=== PATIENT | female | born 1970 | race Caucasian/White ===

== ENCOUNTER → 2023-12-15 10:51 | Outpatient (BNVA) | payer SELFPAY | PROVIDERS: Family Provider Family Medicine; PCP Family Medicine; Visit Provider Family Medicine | DX: M19.90 Unspecified osteoarthritis, unspecified site (principal) | CPT/HCPCS: 80053; 85025; 85651 ==

== ENCOUNTER 2024-01-26 13:12 | Outpatient (CLI) | payer MEDICAID, SELFPAY ==
--- NOTE | 2024-01-26 13:29 | XRR_ITS ---
PROCEDURE INFORMATION: Exam: XR Bilateral Knees, Standing, Anteroposterior Exam date and time: 01/26/2024 1:32 PM Age: 53 years old Clinical indication: Bilateral; Patient HX: Months pain and swelling in right hip, pain and swelling in both knees, right knee pain all over knee, left mostly on lateral side of knee; Additional info: M19.90 - unspecified osteoarthritis, unspecified site TECHNIQUE: Imaging protocol: Radiologic exam of the bilateral knees. Views: Standing frontal. COMPARISON: No relevant prior studies available. FINDINGS: Bones/joints: Osseous anatomic alignment is well preserved. No acutely displaced fracture or dislocation. Joint spaces are well preserved. Soft tissues: No significant soft tissue swelling. XR/[place] [id number] IMPRESSION: No acute findings.
--- NOTE | 2024-01-26 13:29 | XRR_ITS ---
PROCEDURE INFORMATION: Exam: XR Right Hip Exam date and time: 01/26/2024 1:32 PM Age: 53 years old Clinical indication: Hip pain; Patient HX: Months pain and swelling in right hip, pain and swelling in both knees, right knee pain all over knee, left mostly on lateral side of knee; Additional info: M19.90 - unspecified osteoarthritis, unspecified site TECHNIQUE: Imaging protocol: Radiologic exam of the right hip. Views: 1 view hip with pelvis when performed. COMPARISON: No relevant prior studies available. FINDINGS: Bones/joints: Severe osteoarthritis of the right hip joint with tkaw-yo-jkdl articulation, flattening of the femoral head, and superior displacement of the femoral head in relation to the acetabulum, as well as subchondral sclerosis and extensive subchondral cyst formation in both the femoral head and acetabulum. No acutely displaced fractures. No joint dislocation. Soft tissues: Unremarkable. Vasculature: There are numerous benign phleboliths in the pelvis. XR/XR hip RT 2-3V wo/w pel* [id number] IMPRESSION: Severe osteoarthritis of the right hip joint with khwh-wu-hvwx articulation, flattening of the femoral head, and superior displacement of the femoral head in relation to the acetabulum, as well as subchondral sclerosis and extensive subchondral cyst formation in both the femoral head and acetabulum.
== END 2024-01-26 13:13 | disposition home or self-care (01) ==
LOC: RAD 13:16
PROVIDERS: PCP Family Medicine; Visit Provider Family Medicine
DX: M17.0 Bilateral primary osteoarthritis of knee (principal)
CPT/HCPCS: 73502; 73565

== ENCOUNTER → 2024-03-13 13:02 | Outpatient (BNVA) | payer MEDICAID, SELFPAY | PROVIDERS: PCP Family Medicine; Visit Provider Nurse Practitioner | DX: M16.11 Unilateral primary osteoarthritis, right hip (principal); M85.451 Solitary bone cyst, right pelvis | CPT/HCPCS: 73502 ==

== ENCOUNTER 2024-03-22 14:55 | Outpatient (CLI) | payer MEDICAID, SELFPAY ==
--- NOTE | 2024-03-22 15:15 | MRR_ITS ---
PROCEDURE INFORMATION: Exam: MR Right Lower Extremity Joint Without Contrast; Hip Exam date and time: 03/22/2024 3:25 PM Age: 53 years old Clinical indication: Right; Patient HX: RT hip pain, anv 1 year. Fell 1 year ago; Additional info: Right hip pain, not for jose armando protocol. TECHNIQUE: Imaging protocol: Magnetic resonance imaging of the right lower extremity joint without contrast. Exam focused on the hip. COMPARISON: CR XR hip RT 2-3V wo/w pel* [id number] 03/13/2024 1:04 PM, x-ray pelvis and right hip 01/26/2024 FINDINGS: Limitations: Motion artifact. Bones/joints: Severe right hip joint space narrowing is noted, with full-thickness cartilage loss of the femoral head and acetabulum. Moderate to large subcortical cystic changes in the right acetabulum, inferior iliac bone and right femoral head are present. The cystic changes in the femoral head and acetabulum notable for surrounding peripheral linear hypointensity on all imaging sequences. Moderate acetabular and severe right femoral head osteophyte formation is identified a large right hip joint effusion is noted, containing areas of T2 intermediate signal intensity, for example on series 7, image 16. No acute fracture. Images include the left hip demonstrates severe joint space narrowing and cartilage loss, mild subcortical cystic changes in the femoral head and acetabulum, and mild patchy bone marrow edema in the femoral head. A moderate region of serpiginous T1 hypointensity involving the superior left femoral head is best demonstrated on series 4 between images 11 in 16. There is corresponding hypointensity on the fluid sensitive sequences within this region peripherally with mild central hyperintensity. Moderate left acetabular and femoral head osteophyte formation. Labrum: Assessment of the labrum is limited by joint space narrowing and artifact. Diffuse tearing of the right acetabular labrum appears to be present. TENDONS: Tendons of iliopsoas group: Unremarkable. No evidence of tear. Tendons of medial compartment of thigh: Unremarkable. No evidence of tear. Tendons of lateral rotators of hip: Unremarkable. No evidence of tear. Tendons of gluteal group: Unremarkable. No evidence of tear. Tendons of posterior compartment of thigh: There is evidence of moderate partial tearing of the proximal left hamstring tendons. Unremarkable right hamstring tendons. Soft tissues: Unremarkable. Reproductive: An ovoid thin-walled fluid signal intensity structure in the right ovary measures 2.0 x 1.7 x 2.4 cm on series 5, image 9. Unremarkable left ovary. The uterus is anteverted. Small posterior fluid signal intensity structures in the cervix compatible with nabothian cysts. MR/MR hip RT wo con* [id number] IMPRESSION: 1. Advanced, right greater than left hip joint osteoarthritic changes are present. 2. Large right hip joint effusion with evidence of synovitis, for which superimposed inflammatory arthropathy cannot be excluded. 3. Cystic changes in the inferior right iliac bone, right acetabulum and femoral head are likely related to underlying primary osteoarthritis. No definitive evidence of erosive changes or osteomyelitis. 4. Extensive tearing of the right acetabular labrum. 5. Regions of curvilinear hypointensity in the superior left femoral head are noted, compatible with avascular necrosis. Consider dedicated left hip MRI for further assessment as clinically indicated. 6. Moderate partial tearing of the proximal left hamstring tendons. 7. Simple appearing probable benign right ovarian cyst, incompletely characterized without intravenous contrast. Consider dedicated pelvic ultrasound for further assessment.
== END 2024-03-22 14:56 | disposition home or self-care (01) ==
PROVIDERS: PCP Family Medicine; Visit Provider Nurse Practitioner
DX: M16.0 Bilateral primary osteoarthritis of hip (principal); M65.88 Other synovitis and tenosynovitis, other site; S73.191A Other sprain of right hip, initial encounter; S76.812A Strain of other specified muscles, fascia and tendons at thigh level, left thigh, initial encounter; N83.201 Unspecified ovarian cyst, right side; R93.7 Abnormal findings on diagnostic imaging of other parts of musculoskeletal system; M25.751 Osteophyte, right hip; M25.752 Osteophyte, left hip; W19.XXXA Unspecified fall, initial encounter
CPT/HCPCS: 73721

== ENCOUNTER → 2024-03-27 12:49 | Outpatient (BNVA) | payer MEDICAID, SELFPAY | PROVIDERS: PCP Family Medicine; Visit Provider Nurse Practitioner | DX: M16.11 Unilateral primary osteoarthritis, right hip (principal) | CPT/HCPCS: 36415; 80053; 81001; 83036; 85025 ==

== ENCOUNTER → 2024-04-11 08:31 | Outpatient (BNVA) | payer OTHER, MEDICAID, SELFPAY | PROVIDERS: PCP Family Medicine; Visit Provider Family Medicine | DX: Z01.818 Encounter for other preprocedural examination (principal) | CPT/HCPCS: 81003; 87086 ==

== ENCOUNTER 2024-04-18 14:00 | Observation (INO) | payer OTHER, MEDICAID, SELFPAY ==
[2024-04-18] VITALS (17 sets, daily range): BP systolic 96–127; BP diastolic 57–84; PULSE 60–90; RESP 16–20; TEMP 35.9–36.8; O2SAT 94–100; BMI 32.5
--- NOTE | 2024-04-18 10:01 | ANES.PREANE2 ---
Pre-Anesthetic Assessment Height/Weight: Height 5 ft 5 in Preop Diagnosis: Hip arthritis Operation Date: 04/18/24 11:30 Proposed Procedures p Total Hip Arthroplasty(Right) - Francisca Lowe MD Was Beta Frankie taken within 24 hours: N/A Was Clonidine taken within 24 hours: N/A Social No alcohol and No tobacco Smokes marijuana Exam alert, oriented x 3, clear to auscultation bilaterally and regular rate & rhythm Airway Submandibular: within normal limits Cervical ROM: within normal limits Mallampati: Class II Dentition: full Anesthetic Plan ASA status: 2 Anesthesia: MAC and Regional (specify below) Other: No prior issues with anesthesia NPO since yesterday evening Patient arrived in a wheelchair and states that she cannot ambulate well secondary to pain Current smoker(marijuana) Denies any cardiac issues Labs reviewed 03/27/2024 and acceptable for procedure METs limited secondary to pain Plan for spinal anesthetic Medications/Allergies Home Medications ?Medication ?Instructions ?Recorded ?Confirmed ?Last Taken ?Type xugxfka-rspmpfefefpcu-ouqesyjq 250 1 tab PO Q6H PRN Headache 12/15/23 04/17/24 04/14/24 History mg-250 mg-65 mg tablet (Excedrin Extra Strength) diclofenac sodium 75 mg 75 mg PO DAILY 04/17/24 04/17/24 04/10/24 History tablet,delayed release Allergies Allergy/AdvReac Type Severity Reaction Status Date / Time No Known Allergies Allergy Unverified 04/11/24 08:32 [facility] Anesthesia Social History Smoking and tobacco/nicotine status: current every day tobacco/nicotine user Alcohol intake: never Substance/Drug Use: current Data Anesthesia Cardiac Studies: No Data to Display
[2024-04-18] MEDS: CELEcoxib 200 mg Capsule 400 MG PO (10:33)
[2024-04-18] MEDS: gabapentin 300 mg Capsule PO (10:33)
[2024-04-18] MEDS: acetaminophen 1,000 MG/100 ML PIGGYBACK 400 MG IV ×2 (10:34→17:54)
--- NOTE | 2024-04-18 10:34 | P.HPUD_ITS ---
Surgery/Procedure H&P Update DATE OF PROCEDURE: April 18, 2024 DATE H&P PERFORMED: 04/11/24 H&P UPDATE INFORMATION: I have reviewed H&P completed within last 30 days, I have examined patient prior to procedure, No changes to prior documentation and H&P is in [facility] EMR on date indicated PREOP DIAGNOSIS: Osteoarthritis right hip PLANNED PROCEDURE: Operation Date: 04/18/24 11:30 Proposed Procedures p Total Hip Arthroplasty(Right) - Francisca Lowe MD Related Problem List Diagnoses (1) Osteoarthritis of right hip: Qualifiers: Osteoarthritis type: primary Qualified Code(s): M16.11 - Unilateral primary osteoarthritis, right hip
[2024-04-18] MEDS: sodium chloride 0.9% 1,000 ML 30 ML IV (10:36)
[2024-04-18] MEDS: scopolamine 1 mg PATCH 1 PATCH TRANSDERMA (10:39)
[2024-04-18] MEDS: ceFAZolin 2,000 mg SDV 2000 MG IVP ×2 (10:55→21:10)
[2024-04-18] MEDS: tranexamic acid 1,000 mg/10mL SDV 1000 MG IV (10:56)
[2024-04-18] MEDS: BUPivacaine 0.5% INJ 30 mL 20 ML XX (12:21)
[2024-04-18] MEDS: BUPivacaine liposome 13.3 mg/mL SDV 20 mL 266 MG INFILTRATI (12:21)
[2024-04-18] MEDS: VANCOMYCIN ADD-Vantage 1,000 MG VIAL 1000 MG XX (12:22)
[2024-04-18] MEDS: ceFAZolin 1,000 mg SDV 1000 MG IRRIGATION (12:22)
--- NOTE | 2024-04-18 14:19 | PM.OP ---
Operative Report Date of procedure: April 18, 2024 Pre-op diagnosis: Severe degenerative osteoarthritis of the right hip with large cystic changes in the acetabulum, pelvis, and femoral head. Bone loss and femoral head deformity Post-op diagnosis: Severe degenerative osteoarthritis of the right hip with large cystic changes in the acetabulum, pelvis, and femoral head. Bone loss and femoral head deformity Post-op findings: Large cystic changes within the acetabulum and femoral head Procedure done: Total right hip arthroplasty with DBM bone graft and screw fixation of the acetabulum Implants: The [place] total hip system with a size 60 mm by G alpha code Trident II Tritanium acetabular shell with screw fixation x 3 screws and with an MDM liner size 48 mm inner diameter by G alpha code.? A size 4 Accolade II 127 degree neck angle hip stem with a size 28 mm x +0 mm femoral head and a yarsani MDM X3 insert size 28 mm x 48G Specimens removed/disposition: Bone, disposed of Pathology: None sent Surgeon: Francisca Lowe MD Litigation Services Manager: Yesika Renee, nurse practitioner, who services were required for positioning, exposure, manipulation, and retraction. Additional manipulation was also provided by [facility] operating room technicians. Anesthesia: Spinal (With MAC, ASA 2) Estimated blood loss (mL): 670 IV fluids (mL): 1,600 (Crystalloid plus albumin) Urine output (mL): 300 Complications: None Findings: Hip was stable at 90 degrees of flexion with 80 degrees of internal rotation and 30 degrees of adduction. It was also stable to external rotation and toe hang. Condition: stable Disposition: PACU (Then to floor under observation status for pain management and rehabilitation) Brief History: This 53-year-old woman presented to the office complaining of severe right hip pain. She also had left hip pain. The patient states the pain started approximately 10 years prior to her presentation and she felt it was a result of a slip and fall on ice. Extended discussion was had with the patient regarding appropriate treatment. The patient had severe end-stage degenerative changes in the hip with subchondral cystic change up into the wing of the pelvis and within the femoral head. This loss of bone was extensive and they head was severely deformed. Total hip arthroplasty was recommended, and the risks and complications were discussed along with consents being signed. Procedure: Patient was brought to the operating theater.? She was transferred to the operating room table and subsequently administered a spinal anesthesia, ASA 2. This was well-tolerated.? Following administration of adequate anesthesia, the patient was placed in full lateral position and held in position with a pegboard.? The patient's right lower extremity was then prepped and draped in usual fashion utilizing DuraPrep.? It was draped free.? Following prepping and draping, a surgical pause was performed.? At the time of surgical pause, we identified the site and side of surgery.? We also identified the patient and preoperative surgical markings. Confirmation was made of equipment availability.? Additionally, the patient's preoperative IV antibiotic, Ancef 2 g, and TXA administration was confirmed as well.? X-rays were also reviewed. Following the surgical pause, an incision was made centering over the patient's greater trochanter continuing proximally and distally as necessary to allow access to the hip joint.? Dissection continued through skin and soft tissues using a scalpel, and hemostasis was obtained using electrocautery. The tensor fascia gerardo was identified and incised longitudinally.? Sciatic nerve was identified and protected throughout the surgical procedure.? A Charnley U retractor was placed after the tensor fascia gerardo had been incised longitudinally, and the sciatic nerve had been identified.? The hip was internally rotated, and the piriformis muscle was identified and tagged. Piriformis muscle along with the remaining short external rotators were then incised from the posterior aspect of the hip joint.? These were retracted posteriorly.? The capsule was entered in a T-type fashion with the edges being tagged, and subsequently, the hip was dislocated. The labrum, which was mostly calcified, was excised with further excision accomplished once the femoral head was removed.? Following hip dislocation, a femoral neck osteotomy was accomplished in the appropriate position.??Femoral head was noted to be very deformed with significant femoral head collapse. There was essentially no normal anatomy left to the femoral head. We then evaluated the acetabulum. The femur was retracted anteriorly.? Soft tissues were retracted, and the labrum was removed. We then began reaming.? Once the femoral head was removed, there was noted to be significant loss of cartilage over the head and cartilage loss within the acetabulum with extensive cyst within the acetabulum. The acetabulum was deepened, and fibrous tissue was removed from the cyst. They were present anterior, posterior, superior, and inferior. Acetabulum was quite deformed with an oblong egg type shape. After it was deepened, we reamed to a size 59 to allow for a size 60 mm acetabular shell. Roge DBM plus putty with cancellous bone chips x 7.5 cc was placed into the acetabulum pushed into the cysts and a reamer was passed backwards to further impacted. The size 60 mm acetabular shell was impacted into position without difficulty. It was noted to seat nicely, but fixation was compromised secondary to bone loss. 3 screws were placed superiorly to fix and hold the acetabulum in position.? The MDM liner was then impacted into position with care being taken to assure it seated appropriately. It was noted that the acetabulum matched the bony anatomy following osteophyte removal.? The cup was noted to seat nicely but required the screws for fixation. Attention was directed to the proximal femur.? The proximal femur was lifted out of the wound.? A canal finder was passed after the box chisel.? The reamer was used to lateralize.? We then began broaching. We broached sequentially and had excellent fit and fill with the size 4 broach. Secondary to the tenuous nature of the fixation of the acetabulum, we elected to not perform a trial with the broach. Calcar reamer was utilized. We then passed the size 4 stem which was noted to fit nicely. Following this, 1 trial reduction was accomplished with a +0 mm offset femoral head and this was noted to have the stability noted above. The opposite hip also had significant collapse, and leg lengths were felt to be equal, but this was not of his much concern secondary to the severe arthritis in the opposite hip. The final implant was a size 4 Accolade II 127 degree neck angle hip stem which was impacted into position without difficulty and onto this was placed a +0 mm x 28 mm femoral head which had been assembled into the MDM insert size 48G.? With a +0 mm femoral head, we had the above-noted stability.? The stem was noted to seat nicely prior to placement of the femoral head.? The wound was copiously irrigated with 20 mL of Betadine and 500 mL of normal saline mixed together.? Subsequently, we suctioned this out and irrigated the wound copiously with lactated Ringer's.? At this time, with all components in appropriate position, the hip was reduced.? Following reduction of the prosthesis once again, we confirmed the stability of the hip.? Leg lengths were also felt to be satisfactory. Exparel was injected. Being satisfied with the prosthesis, attention was directed to closure.? Closure was accomplished with 0 Vicryl in the capsular tissues.? Piriformis was reattached with 0 Vicryl as well.? Tensor fascia gerardo was closed with 0 Vicryl in an interrupted fashion.? The subcutaneous tissues were closed with a combination of 0 Vicryl and 2-0 Monocryl STRATAFIX.? Vancomycin powder and a Gelfoam thrombin mixture was placed into the wound as well.? The skin was closed with a running 3-0 Monocryl strata fix followed by Dermabond Calli and Annamaria. The patient was placed in an abduction pillow.? Patient was transferred off the operative bed and was brought to the recovery room in a satisfactory condition. Related Problem List Diagnoses (1) Osteoarthritis of right hip: (2) Subchondral bone cyst:
--- NOTE | 2024-04-18 14:25 | XR_ITS ---
WS: [id number] PELVIS: AP VIEW SUBMITTED HISTORY: Status post right total hip arthroplasty COMPARISON: 03/13/2024 Interval placement of a RIGHT hip arthroplasty. No fracture or complication identified. Severe LEFT hip joint arthritis. XR/XR pelvis 1-2V* [id number] IMPRESSION: Status post RIGHT hip arthroplasty. Arthroplasty in good position and alignment .
[2024-04-18] MEDS: calcium carbonate 500 mg Chew Tablet 1000 MG PO (17:54)
[2024-04-18] MEDS: tranexamic acid 1,000 MG/100 ML PREMIX 600 MG IV (17:54)
[2024-04-18] MEDS: oxyCODONE 5 mg IR Tab/Cap PO (17:55)
[2024-04-18] MEDS: sennosides-docusate Tablet 2 TAB PO (17:55)
[2024-04-18] MEDS: iron polysaccharide complex 150 mg Capsule PO (17:56)
[2024-04-18] MEDS: chlorhexidine gluconate 0.12% Btl 473 mL 30 ML MUCOUS MEM ×2 (17:57→21:10)
[2024-04-18] MEDS: morphine 4 mg/mL SDV 1 mL 2 MG IVP (20:14)
[2024-04-18] MEDS: CELEcoxib 200 mg Capsule PO (21:10)
[2024-04-19] VITALS (7 sets, daily range): BP systolic 105–128; BP diastolic 68–84; PULSE 90–96; RESP 15–18; TEMP 36.4–36.7; O2SAT 95–97; BMI 34.7
[2024-04-19] MEDS: oxyCODONE 5 mg IR Tab/Cap PO ×3 (02:32→11:51)
[2024-04-19] MEDS: acetaminophen 1,000 MG/100 ML PIGGYBACK 400 MG IV ×2 (02:32→09:45)
[2024-04-19] MEDS: ceFAZolin 2,000 mg SDV 2000 MG IVP ×2 (03:59→11:51)
[2024-04-19 06:10] LABS: Basophils % 0.2 %; Eosinophils % 0.1 %; Hematocrit 30.4 % (36-47); Lymphocytes # 1.2 10^3/uL (0.8-4.8); Lymphocytes % 13.5 %; Mean Corpuscular HGB Conc 32.6 g/dL (30-55); Mean Corpuscular Hemoglobin 29.6 pg (27-33); Mean Corpuscular Volume 90.7 fl (85-98); Mean Platelet Volume 10.9 fL (7.4-10.4); Monocytes # 0.6 10^3/uL (0.2-0.9); Monocytes % 6.6 %; Neutrophils # 6.89 10^3/uL (1.8-7.7); Neutrophils % 79.4 %; Nucleated Red Blood Cells % 0 %; Platelet Count 213 10^3/cmm (157-399); Red Blood Count 3.35 10^6/uL (3.85-5.65); Red Cell Distribution Width 13.7 % (12.1-15.1); White Blood Count 8.68 10^3/uL (3.29-11.43)
[2024-04-19 06:48] LABS: Blood Urea Nitrogen 9 mg/dL (6-20); Calcium 8.6 mg/dL (8.5-10.5); Carbon Dioxide 23 mmol/L (22-29); Chloride 102 mmol/L (98-107); Creatinine Clr Calc Pharmacy 123.3007; Glomerular Filtration Rate 104.6 mL/min (90-130); Glucose 131 mg/dL (65-115); Osmolality Calculated 284 mOsm/kg (285-295); Sodium 137 mmol/L (136-145)
[2024-04-19] MEDS: cholecalciferol (vitamin D3) 1,000 unit Tablet 1000 UNIT PO (07:32)
[2024-04-19] MEDS: aspirin 325 mg EC Tablet PO (07:32)
[2024-04-19] MEDS: calcium carbonate 500 mg Chew Tablet 1000 MG PO (07:32)
[2024-04-19] MEDS: sennosides-docusate Tablet 2 TAB PO (07:32)
[2024-04-19] MEDS: chlorhexidine gluconate 0.12% Btl 473 mL 30 ML MUCOUS MEM ×2 (07:33→11:51)
[2024-04-19] MEDS: iron polysaccharide complex 150 mg Capsule PO (07:33)
[2024-04-19] MEDS: multivitamin therapeutic Tablet 1 TAB PO (07:33)
[2024-04-19] MEDS: CELEcoxib 200 mg Capsule PO (07:33)
--- NOTE | 2024-04-19 13:15 | P.DS_ITS ---
Discharge Providers Date of Admission: 04/18/24 14:00 Date of Discharge: April 19, 2024 Attending Provider at Admission: Francisca Lowe MD Attending Provider at Discharge: Francisca Lowe MD Primary Care Provider: Valdez Patten MD Diagnoses at Discharge Discharge Diagnosis (1) Osteoarthritis of right hip: Status: Chronic Qualifiers: Osteoarthritis type: primary Qualified Code(s): M16.11 - Unilateral primary osteoarthritis, right hip (2) Subchondral bone cyst: Status: Chronic (3) History of total right hip arthroplasty: Status: Acute Permanent problem details: Date of procedure: April 18, 2024 Diagnosis: Severe degenerative osteoarthritis of the right hip with large cystic changes in the acetabulum, pelvis, and femoral head. Bone loss and femoral head deformity head Procedure done: Total right hip arthroplasty with DBM bone graft and screw fixation of the acetabulum Implants: The [place] total hip system with a size 60 mm by G alpha code Trident II Tritanium acetabular shell with screw fixation x 3 screws and with an MDM liner size 48 mm inner diameter by G alpha code. A size 4 Accolade II 127 degree neck angle hip stem with a size 28 mm x +0 mm femoral head and a mandaeism MDM X3 insert size 28 mm x 48G Reason for Visit Reason for Visit: Brief History: This 53-year-old woman presented to the office complaining of severe right hip pain. She also had left hip pain. The patient states the pain started approximately 10 years prior to her presentation and she felt it was a result of a slip and fall on ice. Extended discussion was had with the patient regarding appropriate treatment. The patient had severe end-stage degenerative changes in the hip with subchondral cystic change up into the wing of the pelvis and within the femoral head. This loss of bone was extensive and they head was severely deformed. Total hip arthroplasty was recommended, and the risks and complications were discussed along with consents being signed. Hospital Course Hospital Course Patient was admitted for same-day surgery in the form of right total hip arthroplasty. She had multiple cystic changes in her acetabulum and in the femoral head. This required bone grafting and she will be touchdown weightbearing. The patient understands. She feels comfortable on the day following surgery. There is no evidence of DVT. She will be discharged to home to follow-up with me in the office as scheduled. Physical Exam Const: COMMON NORMALS: no acute distress, average body habitus, patient oriented x3 and alert GENERAL APPEARANCE: cooperative and comfortable ORIENTATION/CONSCIOUSNESS: Yes awake HENMT: COMMON NORMALS: normocephalic and atraumatic HEAD & SCALP: normocephalic and atraumatic Eye: GENERAL EYE: appearance normal, both eyes and all related structures Chest: COMMONS NORMALS: normal inspection of the chest Resp: COMMON NORMALS: normal respiratory effort EFFORT & INSPECTION: Yes able to speak in complete sentences and Yes symmetric chest movement Extremity: RIGHT LOWER EXTREMITY: Yes hip joint (Dressing is dry and intact.) Right hip: Yes inspection (No bruising or swelling), Yes ROM (Not evaluated.) and Yes neurovascular exam (Intact distally with no evidence of DVT) Neuro: COMMON NORMALS: patient oriented x3 SENSORIUM/ORIENTATION: Yes alert Psych: COMMON NORMALS: mental status grossly normal APPEARANCE: Yes grossly normal ATTITUDE: Yes calm and Yes engaged ATTENTION/CONCENTRATION: Yes attention grossly intact Skin: COMMON NORMALS: no rashes or lesions noted GENERAL SKIN EXAM: no rashes or lesions noted Urinary Catheter Management: Arana: Cath Placed During This Visit: yes, but has since been removed by the nurse Reason for Continuing Indwelling Catheter: Decision to DC Catheter Urinary Catheter Date of Insertion: 04/18/24 Urinary Catheter Time of Insertion: 11:28 Date Urinary Catheter Removed: 04/19/24 Time Urinary Catheter Discontinued: 06:25 Discharge Data Studies Completed and Pending Completed Studies During Hospitalization Category Date Time Status XR pelvis 1-2V* [id number] Routine Exams 04/18/24 14:25 Completed Radiology Impressions Pelvis X-Ray 04/18/24 14:25 IMPRESSION: Status post RIGHT hip arthroplasty. Arthroplasty in good position and alignment. Laboratory Results WBC 8.68 10^3/uL (3.29-11.43) 04/19/24 05:27 RBC 3.35 10^6/uL (3.85-5.65) L 04/19/24 05:27 Hgb 9.90 g/dL (11.27-16.99) L 04/19/24 05:27 Hct 30.4 % (36-47) L 04/19/24 05:27 MCV 90.7 fl (85-98) 04/19/24 05:27 MCH 29.6 pg (27-33) 04/19/24 05:27 MCHC 32.6 g/dL (30-55) 04/19/24 05:27 RDW 13.7 % (12.1-15.1) 04/19/24 05:27 Plt Count 213 10^3/cmm (157-399) 04/19/24 05:27 MPV 10.9 fL (7.4-10.4) H 04/19/24 05:27 Neut % (Auto) 79.4 % 04/19/24 05:27 Lymph % (Auto) 13.5 % 04/19/24 05:27 [place] % (Auto) 6.6 % 04/19/24 05:27 Eos % (Auto) 0.1 % 04/19/24 05:27 Baso % (Auto) 0.2 % 04/19/24 05:27 Neut # (Auto) 6.89 10^3/uL (1.8-7.7) 04/19/24 05:27 Lymph # (Auto) 1.2 10^3/uL (0.8-4.8) 04/19/24 05:27 [place] # (Auto) 0.6 10^3/uL (0.2-0.9) 04/19/24 05:27 Eos # (Auto) 0.0 10^3/uL (0.0-0.8) 04/19/24 05:27 Baso # (Auto) 0.0 10^3/uL (0.0-0.1) 04/19/24 05:27 Nucleated RBC % (auto) 0 % 04/19/24 05:27 Nucleated RBCs # 0.0 /100WBC 04/19/24 05:27 Sodium 137 mmol/L (136-145) 04/19/24 05:27 Potassium 4.0 mmol/L (3.5-5.1) 04/19/24 05:27 Chloride 102 mmol/L (98-107) 04/19/24 05:27 Carbon Dioxide 23 mmol/L (22-29) 04/19/24 05:27 Anion Gap 16.0 (5-19) 04/19/24 05:27 BUN 9 mg/dL (6-20) 04/19/24 05:27 Creatinine 0.6 mg/dL (0.5-0.9) 04/19/24 05:27 GFR Calculation 104.6 mL/min (90-130) 04/19/24 05:27 Glucose 131 mg/dL (65-115) H 04/19/24 05:27 Calculated Osmolality 284 mOsm/kg (285-295) L 04/19/24 05:27 Calcium 8.6 mg/dL (8.5-10.5) 04/19/24 05:27 Vitals Last Vital Signs Temp 98.1 F 04/19/24 11:44 Pulse 93 04/19/24 11:44 Resp 16 04/19/24 11:51 BP 128/84 04/19/24 11:44 Pulse Ox 95 04/19/24 11:44 O2 Del Method Room Air 04/19/24 11:44 Discharge Plan Discharge Patient Disposition: Home Condition: Stable Prescriptions: New acetaminophen 500 mg Tablet 1,000 mg PO Q8H 15 Days Qty: 0 0RF celecoxib 200 mg Capsule 200 mg PO 1XD 30 Days Qty: 30 0RF aspirin 325 mg Tablet,Delayed Release (Dr/Ec) 325 mg PO DAILY 30 Days Qty: 0 0RF oxycodone 5 mg Tablet 5 mg PO Q4H PRN (Reason: Moderate To Severe Pain) 7 Days Qty: 40 0RF Continued Excedrin Extra Strength 250-250-65 mg tablet 1 tab PO Q6H PRN (Reason: Headache) diclofenac sodium 75 mg tablet,delayed release (DR/EC) 75 mg PO DAILY Rx Instructions: TAKE 1 TABLET BY MOUTH TWICE DAILY NEEDED FOR PAIN; instead of ibuprofen FOR arthritis Discharge Orders: Discharge Order (Routine); Ordered 04/19/24 Ordered By: Francisca Lowe Other Ambulatory Orders: Physical Therapy Eval and Treat Outpatient (Order) Timeframe: 3 Days Facility: [facility] - Location: Physical Therapy Ordered By: Francisca Lowe Referrals: [facility] [Other] (You can call and discuss consumer directed services and see if you are a candidate. ) [facility] Outpatient Therapy [Outside] (Call to see if your insurance will cover Outpatient therapy. ) Francisca Lowe MD [Physician] - 05/03/24 1:45 pm Discharge Diet: Advance as tolerated and Usual diet Discharge Activity: Limit activity as instructed, Use walker/crutches as instructed and As per PT/OT instructions Patient Instructions: Aspirin (By mouth), Oxycodone, Rapid Release (By mouth), Celecoxib (By mouth), Acute Wound Care (DC), Total Hip Replacement (GEN), Opioid Safety, Post Anesthesia Care Activity Restrictions/Additional Instructions: Touchdown weightbearing for 6 weeks only. Posterior hip precautions. You may shower with a shower chair, but do not soak your hip in water. Do not remove the dressing unless it lifts up and begins to leak. Discharge Attestations Time Spent in Discharge Care*: greater than 30 min Quality Metrics Clinical Quality Measures [ No reported AMI, CVA or VTE this stay] Coding Level of Care Code Acute Code for Chg Fwd Diagnoses Primary osteoarthritis of right hip M16.11 Osteoarthritis type: primary Subchondral bone cyst M85.60 History of total right hip arthroplasty Z96.641
== END 2024-04-19 13:52 | disposition home or self-care (01) ==
LOC: MEDSURG 14:01
PROVIDERS: Admitting Provider Specialist; PCP Family Medicine; Visit Provider Specialist
PROC: (CPT 27130; principal; 2024-04-18 11:00)
DX: M16.11 Unilateral primary osteoarthritis, right hip (principal); Z79.82 Long term (current) use of aspirin; F17.210 Nicotine dependence, cigarettes, uncomplicated; M85.651 Other cyst of bone, right thigh
CPT/HCPCS: 27130; 36415; 51702; 72170; 80048; 85025; 97161; 97166; C1713; C1734; C1776; C9290; G0378; J0131; J0171; J0690; J2250; J2270; J2704; J3370; J3490; J7030; P9045

== ENCOUNTER 2024-04-27 12:27 | Outpatient (RCR) | payer OTHER, MEDICAID, SELFPAY | END 2024-04-28 23:59 | disposition home or self-care (01) | LOC: SPT 12:27 | PROVIDERS: Visit Provider Specialist | DX: M16.11 Unilateral primary osteoarthritis, right hip (principal) | CPT/HCPCS: 97161 ==

== ENCOUNTER 2024-04-29 06:00 | Outpatient (RCR) | payer OTHER, MEDICAID, SELFPAY | END 2024-05-29 23:59 | disposition home or self-care (01) | LOC: SPT 06:00 | PROVIDERS: Visit Provider Specialist | DX: M16.11 Unilateral primary osteoarthritis, right hip (principal) | CPT/HCPCS: 97110 ==

== ENCOUNTER 2024-05-30 05:44 | Outpatient (RCR) | payer OTHER, MEDICAID, SELFPAY | END 2024-06-28 23:59 | disposition home or self-care (01) | LOC: SPT 05:44 | PROVIDERS: Visit Provider Specialist | DX: M16.11 Unilateral primary osteoarthritis, right hip (principal) | CPT/HCPCS: 97110 ==

== ENCOUNTER → 2024-06-12 09:02 | Outpatient (BNVA) | payer OTHER, MEDICAID, SELFPAY | PROVIDERS: PCP Family Medicine; Visit Provider Nurse Practitioner | DX: Z96.641 Presence of right artificial hip joint (principal) | CPT/HCPCS: 73502 ==

== ENCOUNTER → 2024-07-03 10:41 | Outpatient (BNVA) | payer OTHER, MEDICAID, SELFPAY | PROVIDERS: PCP Family Medicine; Visit Provider Nurse Practitioner | DX: M16.12 Unilateral primary osteoarthritis, left hip (principal) | CPT/HCPCS: 73502 ==

== ENCOUNTER → 2024-07-27 13:22 | Outpatient (BNVA) | payer OTHER, MEDICAID, SELFPAY | PROVIDERS: PCP Family Medicine; Visit Provider Family Medicine | DX: D64.9 Anemia, unspecified (principal) | CPT/HCPCS: 85025 ==

== ENCOUNTER 2024-08-04 14:41 | Outpatient (CLI) | payer OTHER, MEDICAID, SELFPAY ==
[2024-08-04 15:07] LABS: Basophils # 0.1 10^3/uL (0.0-0.1); Basophils % 1.1 %; Eosinophils # 0.3 10^3/uL (0.0-0.8); Eosinophils % 3.9 %; Hematocrit 35.7 % (36-47); Lymphocytes # 1.5 10^3/uL (0.8-4.8); Mean Corpuscular HGB Conc 31.4 g/dL (30-55); Mean Corpuscular Hemoglobin 26.4 pg (27-33); Mean Platelet Volume 9.9 fL (7.4-10.4); Monocytes # 0.5 10^3/uL (0.2-0.9); Monocytes % 7.8 %; Neutrophils # 4.01 10^3/uL (1.8-7.7); Neutrophils % 62.9 %; Nucleated Red Blood Cells % 0 %; Platelet Count 248 10^3/cmm (157-399); Red Blood Count 4.25 10^6/uL (3.85-5.65); Red Cell Distribution Width 16.9 % (12.1-15.1); White Blood Count 6.38 10^3/uL (3.29-11.43)
[2024-08-04 15:10] LABS: Bilirubin Urine Negative (Negative); Blood Urine Negative (Negative); Glucose Urine UA Negative (Normal); Ketones Urine Trace (Negative); Leukocyte Esterase Urine 2+ (Negative); Nitrate Urine Negative (Negative); Protein Urine Trace (Negative); Specific Gravity, Urine 1.026 (1.005-1.030); Urine Appearance Cloudy (CLEAR); Urine Color Yellow (Yellow); pH Urine 5.5 (5-7)
[2024-08-04 15:15] LABS: Add Urine Microscopic? YES; Bacteria Urine 4+ /hpf; Hyaline Casts Urine 5.77 /lpf; RBC Urine 0-2 /hpf (0-2)
[2024-08-04 15:23] LABS: Alanine Aminotransferase 48 U/L (0-33); Albumin Level 4.1 g/dL (3.5-5.2); Alkaline Phosphatase 75 U/L (35-105); Anion Gap 16.9 (5-19); Aspartate Amino Transferase 34 U/L (0-32); Blood Urea Nitrogen 21 mg/dL (6-20); Carbon Dioxide 21 mmol/L (22-29); Chloride 104 mmol/L (98-107); Globulin 3.1 g/dL (1.3-4.6); Glomerular Filtration Rate 87.5 mL/min (90-130); Glucose 123 mg/dL (65-115); Osmolality Calculated 290 mOsm/kg (285-295); Potassium 3.9 mmol/L (3.5-5.1); Sodium 138 mmol/L (136-145); Total Bilirubin 0.6 mg/dL (0.15-1.2); Total Protein 7.2 g/dL (6.6-8.7)
== END 2024-08-04 14:42 | disposition home or self-care (01) ==
LOC: LAB 14:45
PROVIDERS: PCP Family Medicine; Visit Provider Nurse Practitioner
DX: M25.552 Pain in left hip (principal)
CPT/HCPCS: 36415; 80053; 81001; 85025

== ENCOUNTER → 2024-08-07 11:40 | Outpatient (BNVA) | payer OTHER, MEDICAID, SELFPAY | PROVIDERS: PCP Family Medicine; Visit Provider Family Medicine | DX: Z01.818 Encounter for other preprocedural examination (principal) | CPT/HCPCS: 81003; 87086 ==

== ENCOUNTER 2024-08-22 13:32 | Observation (INO) | payer OTHER, MEDICAID, SELFPAY ==
[2024-08-22] VITALS (18 sets, daily range): BP systolic 66–133; BP diastolic 46–84; PULSE 48–87; RESP 16–18; TEMP 36.1–36.6; O2SAT 94–100; BMI 36.2
[2024-08-22 06:29] LABS: OR HCG Qualitative Urine Negative (Negative)
[2024-08-22] MEDS: sodium chloride 0.9% 1,000 ML 30 ML IV (06:33)
[2024-08-22] MEDS: acetaminophen 1,000 MG/100 ML PIGGYBACK 400 MG IV ×3 (06:34→21:25)
[2024-08-22] MEDS: CELEcoxib 200 mg Capsule 400 MG PO (06:35)
[2024-08-22] MEDS: gabapentin 300 mg Capsule PO (06:35)
--- NOTE | 2024-08-22 07:01 | P.ANESASSM_ITS ---
Pre-Anesthetic Assessment Height/Weight: Height 1.65 m Weight 98.883 kg Temp Pulse Resp BP Pulse Ox O2 Del Method 97.1 F L 76 18 121/77 98 Room Air 08/22/24 06:20 08/22/24 06:20 08/22/24 06:20 08/22/24 06:20 08/22/24 06:20 08/22/24 06:44 Operation Date: 08/22/24 07:50 Proposed Procedures p Left Total Hip Arthroplasty(Left) - Francsica Lowe MD Familial anesthetic complications: None Was Beta Frankie taken within 24 hours: N/A Was Clonidine taken within 24 hours: N/A Last intake: Intake Last Liquid Date 08/21/24 Last Liquid Time 23:00 Last Solid Date 08/21/24 Last Solid Time 21:00 Social No alcohol and No tobacco Marijuana Exam alert, oriented x 3, clear to auscultation bilaterally and regular rate & rhythm Airway Mallampati: Class II Dentition: full Anesthetic Plan ASA status: 2 Anesthesia: Regional (specify below) Other: Spinal Risk of > 500 ml blood loss (7ml/kg in children): No Medications/Allergies Home Medications ?Medication ?Instructions ?Recorded ?Confirmed ?Last Taken ?Type diclofenac sodium 75 mg 75 mg PO BID PRN pain #60 ta bs 07/27/24 08/21/24 08/16/24 Rx tablet,delayed release Allergies Allergy/AdvReac Type Severity Reaction Status Date / Time No Known Allergies Allergy Verified 08/22/24 06:18 Current Medications Generic Name Dose Route Start Last Admin Trade Name Freq PRN Reason Stop Dose Admin Sodium Chloride 1,000 mls @ 30 mls/hr 08/22/24 06:15 08/22/24 06:33 Sodium Chloride 0.9% IV 08/23/24 06:14 30 mls/hr .Q24H HUE Administration PFSH Anesthesia Medical History Primary osteoarthritis of left hip Social History Smoking and tobacco/nicotine status: current every day tobacco/nicotine user Alcohol intake: never Substance/Drug Use: current
--- NOTE | 2024-08-22 07:02 | P.HPUD_ITS ---
Surgery/Procedure H&P Update DATE OF PROCEDURE: August 22, 2024 DATE H&P PERFORMED: 08/07/24 H&P UPDATE INFORMATION: I have reviewed H&P completed within last 30 days, I have examined patient prior to procedure, No changes to prior documentation, H&P is in [facility] EMR on date indicated and Risks and benefits of the procedure reviewed PLANNED PROCEDURE: Operation Date: 08/22/24 07:50 Proposed Procedures p Left Total Hip Arthroplasty(Left) - Francisca Lowe MD Related Problem List Diagnoses (1) Primary osteoarthritis of left hip:
[2024-08-22] MEDS: ceFAZolin 2,000 mg SDV 2000 MG IVP ×3 (08:04→23:18)
[2024-08-22] MEDS: tranexamic acid 1,000 mg/10mL SDV 1000 MG IV (08:32)
[2024-08-22] MEDS: ceFAZolin 1,000 mg SDV 1000 MG IRRIGATION (08:50)
[2024-08-22] MEDS: vancomycin 1,000 MG SDV 1000 MG XX (09:14)
[2024-08-22] MEDS: BUPivacaine liposome 13.3 mg/mL SDV 20 mL 266 MG XX (09:18)
[2024-08-22] MEDS: BUPivacaine 0.5% INJ 10 mL 20 ML INJECTION (09:18)
--- NOTE | 2024-08-22 11:22 | XR_ITS ---
WS: [id number] Exam: XR pelvis 1-2V* [id number] Date/Time of Exam: 08/22/2024 11:22 AM Reason For Exam: S/P FORREST Comparison 07/03/2024. LEFT hip total arthroplasty is noted since the previous study. Postop changes in the soft tissues. Again noted is a stable appearing RIGHT total hip replacement. The visualized pelvis is unremarkable. XR/XR pelvis 1-2V* [id number] IMPRESSION: 1. New LEFT total hip replacement.
--- NOTE | 2024-08-22 11:22 | P.OP_ITS ---
Operative Report Date of procedure: August 22, 2024 Pre-op diagnosis: Severe degenerative osteoarthritis of the left hip with femoral head deformity and bone loss Post-op diagnosis: Severe degenerative osteoarthritis of the left hip with femoral head deformity and bone loss Post-op findings: Severe deformity of the femoral head. Small cyst within the acetabulum. Acetabular deformity much less than on the opposite side Procedure done: Left total hip arthroplasty Implants: The [employer] total hip system with a size 54 mm by E alpha code Trident II Tritanium solid back acetabular shell and with an MDM liner size 42 mm inner diameter by E alpha code.? A size 3 Accolade II 127 degree neck angle hip stem with a size 28 mm x +4 mm femoral head and a sabianism MDM X3 insert size 28 mm x 42E Specimens removed/disposition: Bone, disposed of Pathology: None Surgeon: Francisca Lowe MD Mill Worker: Yesika Renee, nurse practitioner, who services were required for positioning, exposure, manipulation, and retraction. Additional manipulation was also provided by [facility] operating room technicians. Anesthesia: Spinal (With MAC, ASA 2) Estimated blood loss (mL): 550 IV fluids (mL): 1,700 Urine output (mL): 300 Complications: None Findings: Severe degenerative osteoarthritis of the left hip with deformity of the femoral head. Condition: stable Disposition: PACU Brief History: This 53-year-old woman initially presented with complaints of bilateral hip pain. On April 18, 2024, the patient underwent left total hip arthroplasty. Risks and complications of surgery have been discussed with her. Her left surgery was uneventful, and the patient was happy with her outcome. For that reason, she wished to proceed with arthroplasty to the right hip. Once again, risks and complications were discussed, consents were signed, and questions were answered. Patient was seen the morning of surgery and given further opportunity for questions. Procedure: Patient was brought to the operating theater.? She was transferred to the operating room table and subsequently administered a spinal anesthesia, ASA 2. This was well-tolerated.? Following administration of adequate anesthesia, the patient was placed in full lateral position and held in position with a pegboard.? The patient's left lower extremity was then prepped and draped in usual fashion utilizing DuraPrep.? It was draped free.? Following prepping and draping, a surgical pause was performed.? At the time of surgical pause, we identified the site and side of surgery.? We also identified the patient and preoperative surgical markings. Confirmation was made of equipment availability.? Additionally, the patient's preoperative IV antibiotic, Ancef 2 g, and TXA administration was confirmed as well.? X-rays were also reviewed. Following the surgical pause, an incision was made centering over the patient's greater trochanter continuing proximally and distally as necessary to allow access to the hip joint.? Dissection continued through skin and soft tissues using a scalpel, and hemostasis was obtained using electrocautery. The tensor fascia gerardo was identified and incised longitudinally.? Sciatic nerve was identified and protected throughout the surgical procedure.? A Charnley U retractor was placed after the tensor fascia gerardo had been incised longitudinal ly, and the sciatic nerve had been identified.? The hip was internally rotated, and the piriformis muscle was identified and tagged. Piriformis muscle along with the remaining short external rotators were then incised from the posterior aspect of the hip joint.? These were retracted posteriorly.? The capsule was entered in a T-type fashion with the edges being tagged, and subsequently, the hip was dislocated. The labrum, which was mostly calcified, was excised with further excision accomplished once the femoral head was removed.? Following hip dislocation, a femoral neck osteotomy was accomplished in the appropriate position.??Femoral head was noted to be very deformed with significant femoral head collapse. The femur was retracted anteriorly.? The acetabulum was evaluated. Soft tissues were retracted, and the labrum was removed. We then began reaming.? Once femoral head was removed, the acetabulum was further evaluated. There was significant loss of cartilage within the acetabulum. It was palpated, and there were found to be no significant cystic changes. In contrast to the patient's opposite hip, the acetabulum was relatively hemispherical. We were able to ream to a size 53 reamer to allow for placement of a size 54 cup. This was impacted into position without difficulty. The cup was noted to sit nicely and had good fixation. The MDM liner was then impacted into position with care being taken to assure it seated appropriately. It was noted that the acetabulum matched the bony anatomy following osteophyte removal. Attention was directed to the proximal femur.? The proximal femur was lifted out of the wound.? A canal finder was passed after the box chisel.? The reamer was used to lateralize.? We then began broaching. We broached sequentially and had excellent fit and fill with the size 3 broach. Trial reduction was initially accomplished with a +0 femoral head. Although this gave us good stability, it was felt that leg length would be better restored with a +4 femoral head. Because we used a size 3, the neck length was slightly shorter than on the opposite side. Therefore, trial components were removed. Trial reduction was not accomplished with the +4 mm femoral head. The final implant was a size 3 Accolade II 127 degree neck angle hip stem which was impacted into position without difficulty and onto this was placed a +4 mm x 28 mm femoral head which had been assembled into the [facility] insert size 42mm x E.? With a +4 mm femoral head, the hip was stable at 90 degrees of flexion with 85 degrees of internal rotation and 30 degrees of adduction. It was also stable to external rotation and toe hang.? The stem was noted to seat nicely prior to placement of the femoral head.? The wound was copiously irrigated with 20 mL of Betadine and 500 mL of normal saline mixed together.? Subsequently, we suctioned this out and irrigated the wound copiously with lactated Ringer's.? At this time, with all components in appropriate position, the hip was reduced.? Following reduction of the prosthesis once again, we confirmed the stability of the hip.? Leg lengths were also felt to be satisfactory. Exparel was injected. Being satisfied with the prosthesis, attention was directed to closure.? Closure was accomplished with 0 Vicryl in the capsular tissues.? Piriformis was reattached with 0 Vicryl as well.? Tensor fascia gerardo was closed with 0 Vicryl in an interrupted fashion.? The subcutaneous tissues were closed with a combination of 0 Vicryl and 2-0 Monocryl STRATAFIX.? Vancomycin powder and a Gelfoam thrombin mixture was placed into the wound as well.? The skin was closed with a running 3-0 Monocryl strata fix followed by Dermabond Calli and Zoilaite. The patient was placed in an abduction pillow.? Patient was transferred off the operative bed and was brought to the recovery room in a satisfactory condition. Related Problem List Diagnoses (1) Primary osteoarthritis of left hip: (2) Avascular necrosis of bone of left hip: (3) Obesity, Class II, BMI 35-39.9:
[2024-08-22] MEDS: ondansetron 2 mg/ML SDV 2 mL 4 MG IVP ×3 (13:01→15:01)
--- NOTE | 2024-08-22 14:04 | ANE.PACU2 ---
Inpatient post-anesthesia follow up: Airway intact: Yes Vital signs: Temperature 97 F Pulse Rate 76 Respiratory Rate 16 Blood Pressure 133/84 Pulse Oximetry 100 Oxygen Delivery Me thod Room Air Oxygen Flow Rate Fraction of Inspir ed Oxygen Hydration adequate: Yes Nausea and vomiting: No Pain level: 1 Mental status: Baseline
[2024-08-22] MEDS: oxyCODONE 5 mg IR Tab/Cap PO ×2 (15:01→21:25)
[2024-08-22] MEDS: CELEcoxib 200 mg Capsule PO (15:01)
[2024-08-22] MEDS: tranexamic acid 1,000 MG/100 ML PREMIX 600 MG IV (16:16)
[2024-08-22] MEDS: mupirocin oint 22 gm 1 APPLIC NASAL (17:10)
[2024-08-22] MEDS: chlorhexidine gluconate 0.12% Btl 473 mL 30 ML MUCOUS MEM ×2 (17:10→20:16)
[2024-08-22] MEDS: calcium carbonate 500 mg Chew Tablet 1000 MG PO (17:11)
[2024-08-22] MEDS: sennosides-docusate Tablet 2 TAB PO (17:11)
[2024-08-22] MEDS: iron polysaccharide complex 150 mg Capsule PO (17:11)
--- NOTE | 2024-08-22 23:43 | PC.NURSE ---
DHILLON WAS REMOVED PRIOR TO THIS NURSE COMING ONTO SHIFT. PT WAS ABLE TO AMBULATE TO THE BATHROOM.
[2024-08-23] VITALS (8 sets, daily range): BP systolic 99–139; BP diastolic 59–94; PULSE 69–72; RESP 16–18; TEMP 36.5–36.7; O2SAT 94–99
[2024-08-23] MEDS: oxyCODONE 5 mg IR Tab/Cap PO ×3 (02:08→10:48)
[2024-08-23] MEDS: CELEcoxib 200 mg Capsule PO (02:08)
[2024-08-23 06:12] LABS: Basophils % 0.4 %; Eosinophils # 0.1 10^3/uL (0.0-0.8); Eosinophils % 1.3 %; Hematocrit 26.9 % (36-47); Lymphocytes # 1.5 10^3/uL (0.8-4.8); Lymphocytes % 29.2 %; Mean Corpuscular HGB Conc 29.7 g/dL (30-55); Mean Corpuscular Hemoglobin 25.4 pg (27-33); Mean Corpuscular Volume 85.4 fl (85-98); Mean Platelet Volume 10.6 fL (7.4-10.4); Monocytes # 0.5 10^3/uL (0.2-0.9); Monocytes % 9.4 %; Neutrophils # 3.09 10^3/uL (1.8-7.7); Neutrophils % 59.3 %; Nucleated Red Blood Cells % 0 %; Platelet Count 173 10^3/cmm (157-399); Red Blood Count 3.15 10^6/uL (3.85-5.65); Red Cell Distribution Width 17.3 % (12.1-15.1); White Blood Count 5.21 10^3/uL (3.29-11.43)
[2024-08-23] MEDS: acetaminophen 1,000 MG/100 ML PIGGYBACK 400 MG IV (06:15)
[2024-08-23 06:27] LABS: Anion Gap 12.2 (5-19); Blood Urea Nitrogen 10 mg/dL (6-20); Calcium 8.1 mg/dL (8.5-10.5); Carbon Dioxide 24 mmol/L (22-29); Chloride 105 mmol/L (98-107); Creatinine Clr Calc Pharmacy 126.2511; Glomerular Filtration Rate 104.6 mL/min (90-130); Glucose 107 mg/dL (65-115); Osmolality Calculated 284 mOsm/kg (285-295); Potassium 4.2 mmol/L (3.5-5.1); Sodium 137 mmol/L (136-145)
[2024-08-23] MEDS: ceFAZolin 2,000 mg SDV 2000 MG IVP (07:19)
[2024-08-23] MEDS: cholecalciferol (vitamin D3) 1,000 unit Tablet 1000 UNIT PO (07:19)
[2024-08-23] MEDS: sennosides-docusate Tablet 2 TAB PO (07:19)
[2024-08-23] MEDS: iron polysaccharide complex 150 mg Capsule PO (07:19)
[2024-08-23] MEDS: calcium carbonate 500 mg Chew Tablet 1000 MG PO (07:19)
[2024-08-23] MEDS: multivitamin therapeutic Tablet 1 TAB PO (07:19)
[2024-08-23] MEDS: chlorhexidine gluconate 0.12% Btl 473 mL 30 ML MUCOUS MEM ×2 (07:20→12:25)
[2024-08-23] MEDS: mupirocin oint 22 gm 1 APPLIC NASAL (07:20)
[2024-08-23] MEDS: aspirin 325 mg EC Tablet PO (07:20)
--- NOTE | 2024-08-23 08:56 | PC.CHAP ---
Pastoral Care Encounter/Spiritual Assessment Type of Contact [] Declined change control specialist visit [] Patient/Family/Request visit [] Outpatient visit [] Follow-up visit [] Physician referral [] Code/Alert [] Routine visit [] Staff referral [] Actively dying [] Patient sleeping [] Family support [] [] Out of room [] Palliative care [] [] Receiving care in room [] Pre-surgical visit [] Trauma [] Long length of stay [] ICU visit [] Other: Relational/Emotional Strength [] Patient feels connected with others/family/visitors/staff [] Distress [] Loneliness/isolation [] Abandonment Spirituality of Patient [] Person of Angeline [] Attends Islam of their Angeline [] Believes in Prayer [] Reads Bible or Restorationist materials [] There are Spiritual issues to be addressed Manager Database Interventions [] Prayer [] Active listening [] Non-anxious presence [] Spiritual/emotional support [] Crisis/trauma care [] Spiritual counseling [] Bereavement support [] Provided bereavement packet [] Provided Bible/devotional materials [] Provided toy/stuffed animal, coloring book to patient or family member [] Provided Communion [] Anointing/[place] [] Salvation [] Completed spiritual assessment [] Other: Impact on Illness or Injury [] Angry [] Fearful [] Anxious [] Often cries [] Exhaustion [] Unable to work [] Unable to attend sabianist [] Unable to walk/stand [] Unable to read [] Unable to drive [] Unable to eat/drink [] Unable to sleep [] Unable to be with family [] Patient intubated [] Other: Summary Time spent with patient
--- NOTE | 2024-08-23 08:57 | PC.CHAP ---
Pastoral Care Encounter/Spiritual Assessment Type of Contact [] Declined snow technician visit [] Patient/Family/Request visit [] Outpatient visit [] Follow-up visit [] Physician referral [] Code/Alert [x] Routine visit [] Staff referral [] Actively dying [] Patient sleeping [] Family support [] [] Out of room [] Palliative care [] [] Receiving care in room [] Pre-surgical visit [] Trauma [] Long length of stay [] ICU visit [] Other: Relational/Emotional Strength [x] Patient feels connected with others/family/visitors/staff [] Distress [] Loneliness/isolation [] Abandonment Spirituality of Patient [x] Person of Angeline [] Attends Sabianist of their Angeline [x] Believes in Prayer [] Reads Bible or Gnosticist materials [] There are Spiritual issues to be addressed Colorer Interventions [x] Prayer [x] Active listening [x] Non-anxious presence [x] Spiritual/emotional support [] Crisis/trauma care [] Spiritual counseling [] Bereavement support [] Provided bereavement packet [] Provided Bible/devotional materials [] Provided toy/stuffed animal, coloring book to patient or family member [] Provided Communion [] Anointing/[place] [] Salvation [x] Completed spiritual assessment [] Other: Impact on Illness or Injury [] Angry [] Fearful [] Anxious [] Often cries [] Exhaustion [] Unable to work [] Unable to attend gnosticist [] Unable to walk/stand [] Unable to read [] Unable to drive [] Unable to eat/drink [] Unable to sleep [] Unable to be with family [] Patient intubated [] Other: Summary Time spent with patient 5 min
[2024-08-23] MEDS: acetaminophen 500 mg Tablet 1000 MG PO (12:25)
--- NOTE | 2024-08-23 13:26 | PM.DCS ---
Discharge Providers Date of Admission: 08/22/24 13:32 Date of Discharge: August 23, 2024 Attending Provider at Admission: Francisca Lowe MD Attending Provider at Discharge: Francisca Lowe MD Primary Care Provider: Valdez Patten MD Diagnoses at Discharge Discharge Diagnosis (1) History of total left hip arthroplasty: Status: Acute Permanent problem details: Date of procedure: August 22, 2024 Diagnosis: Severe degenerative osteoarthritis of the left hip with femoral head deformity and bone loss Procedure done: Left total hip arthroplasty Implants: The Meridian total hip system with a size 54 mm by E alpha code Trident II Tritanium solid back acetabular shell and with an MDM liner size 42 mm inner diameter by E alpha code. A size 3 Accolade II 127 degree neck angle hip stem with a size 28 mm x +4 mm femoral head and a mormon MDM X3 insert size 28 mm x 42E (2) Primary osteoarthritis of left hip: Status: Acute (3) Avascular necrosis of bone of left hip: Status: Acute (4) Obesity, Class II, BMI 35-39.9: Status: Acute Reason for Visit Reason for Visit: M75.102 Brief History: This 53-year-old woman initially presented with complaints of bilateral hip pain. On April 18, 2024, the patient underwent left total hip arthroplasty. Risks and complications of surgery have been discussed with her. Her left surgery was uneventful, and the patient was happy with her outcome. For that reason, she wished to proceed with arthroplasty to the right hip. Once again, risks and complications were discussed, consents were signed, and questions were answered. Patient was seen the morning of surgery and given further opportunity for questions. Hospital Course Hospital Course Patient was admitted to the hospital under observation status following same-day surgery for left total hip arthroplasty. She did well with this procedure. She had no complications. On the first postoperative day, she was ready to go home and actually stated that this hip was easier than her opposite hip. Dressing was dry and intact. There was no evidence of DVT. There was no significant lower extremity swelling. Physical Exam Const: COMMON NORMALS: no acute distress, average body habitus, patient oriented x3 and alert GENERAL APPEARANCE: cooperative and comfortable ORIENTATION/CONSCIOUSNESS: Yes awake HENMT: COMMON NORMALS: normocephalic and atraumatic HEAD & SCALP: normocephalic and atraumatic Eye: GENERAL EYE: appearance normal, both eyes and all related structures Chest: COMMONS NORMALS: normal inspection of the chest Resp: COMMON NORMALS: normal respiratory effort EFFORT & INSPECTION: Yes able to speak in complete sentences and Yes symmetric chest movement Extremity: LEFT LOWER EXTREMITY: Yes hip joint (Dressing dry and intact) Left hip: Yes inspection (No significant swelling), Yes ROM (Not evaluated) and Yes neurovascular exam (No evidence of DVT) Neuro: COMMON NORMALS: patient oriented x3 SENSORIUM/ORIENTATION: Yes alert Psych: COMMON NORMALS: mental status grossly normal APPEARANCE: Yes grossly normal ATTITUDE: Yes calm and Yes engaged ATTENTION/CONCENTRATION: Yes attention grossly intact Skin: COMMON NORMALS: no rashes or lesions noted GENERAL SKIN EXAM: no rashes or lesions noted Urinary Catheter Management: Arana: Cath Placed During This Visit: yes, but has since been removed by the nurse Reason for Continuing Indwelling Catheter: Decision to DC Catheter Urinary Catheter Date of Insertion: 08/22/24 Urinary Catheter Time of Insertion: 08:21 Date Urinary Catheter Removed: 08/23/24 Time Urinary Catheter Discontinued: 06:43 Discharge Data Studies Completed and Pending Completed Studies During Hospitalization Category Date Time Status XR pelvis 1-2V* [id number] Routine Exams 08/22/24 11:22 Completed Radiology Impressions Pelvis X-Ray 08/22/24 11:22 IMPRESSION: 1. New LEFT total hip replacement. Laboratory Results WBC 5.21 10^3/uL (3.29-11.43) 08/23/24 05:33 RBC 3.15 10^6/uL (3.85-5.65) L 08/23/24 05:33 Hgb 8.00 g/dL (11.27-16.99) L 08/23/24 05:33 Hct 26.9 % (36-47) L 08/23/24 05:33 MCV 85.4 fl (85-98) 08/23/24 05:33 MCH 25.4 pg (27-33) L 08/23/24 05:33 MCHC 29.7 g/dL (30-55) L 08/23/24 05:33 RDW 17.3 % (12.1-15.1) H 08/23/24 05:33 Plt Count 173 10^3/cmm (157-399) 08/23/24 05:33 MPV 10.6 fL (7.4-10.4) H 08/23/24 05:33 Neut % (Auto) 59.3 % 08/23/24 05:33 Lymph % (Auto) 29.2 % 08/23/24 05:33 Traverse % (Auto) 9.4 % 08/23/24 05:33 Eos % (Auto) 1.3 % 08/23/24 05:33 Baso % (Auto) 0.4 % 08/23/24 05:33 Neut # (Auto) 3.09 10^3/uL (1.8-7.7) 08/23/24 05:33 Lymph # (Auto) 1.5 10^3/uL (0.8-4.8) 08/23/24 05:33 Traverse # (Auto) 0.5 10^3/uL (0.2-0.9) 08/23/24 05:33 Eos # (Auto) 0.1 10^3/uL (0.0-0.8) 08/23/24 05:33 Baso # (Auto) 0.0 10^3/uL (0.0-0.1) 08/23/24 05:33 Nucleated RBC % (auto) 0 % 08/23/24 05:33 Nucleated RBCs # 0.0 /100WBC 08/23/24 05:33 Sodium 137 mmol/L (136-145) 08/23/24 05:33 Potassium 4.2 mmol/L (3.5-5.1) 08/23/24 05:33 Chloride 105 mmol/L (98-107) 08/23/24 05:33 Carbon Dioxide 24 mmol/L (22-29) 08/23/24 05:33 Anion Gap 12.2 (5-19) 08/23/24 05:33 BUN 10 mg/dL (6-20) 08/23/24 05:33 Creatinine 0.6 mg/dL (0.5-0.9) 08/23/24 05:33 GFR Calculation 104.6 mL/min (90-130) 08/23/24 05:33 Glucose 107 mg/dL (65-115) 08/23/24 05:33 Calculated Osmolality 284 mOsm/kg (285-295) L 08/23/24 05:33 Calcium 8.1 mg/dL (8.5-10.5) L 08/23/24 05:33 Urine HCG, Qual Negative (Negative) 08/22/24 06:07 Vitals Last Vital Signs Temp 98.1 F 08/23/24 11:54 Pulse 72 08/23/24 11:54 Resp 17 08/23/24 11:54 BP 139/94 08/23/24 11:54 Pulse Ox 99 08/23/24 11:54 O2 Del Method Room Air 08/23/24 11:54 Discharge Plan Discharge Patient Disposition: Home Condition: Stable Prescriptions: New acetaminophen 500 mg Tablet 1,000 mg PO Q8H 15 Days Qty: 90 0RF celecoxib 200 mg Capsule 200 mg PO 1XD 30 Days Qty: 30 0RF aspirin 325 mg Tablet,Delayed Release (Dr/Ec) 325 mg PO DAILY 30 Days Qty: 30 0RF oxycodone 5 mg Tablet 5 - 10 mg PO Q4H PRN (Reason: Moderate To Severe Pain) 7 Days Qty: 30 0RF Held diclofenac sodium 75 mg tablet,delayed release (DR/EC) 75 mg PO BID PRN (Reason: pain) Qty: 60 5RF Hold Instructions: After celecoxib is completed or you may substitute your diclofenac if you feel it is more beneficial Rx Instructions: TAKE 1 TABLET BY MOUTH TWICE DAILY NEEDED FOR PAIN; instead of ibuprofen FOR arthritis Discharge Orders: Discharge Order (Routine); Ordered 08/23/24 Ordered By: Francisca Lowe Other Ambulatory Orders: Physical Therapy Eval and Treat Outpatient (Order) Timeframe: 3 Days Facility: [facility] - Location: Physical Therapy [place] Ordered By: Francisca Lowe Referrals: [facility] Outpatient Therapy [Outside] - 08/25/24 8:00 am Referral Note: If unable to keep this appointment for some reason, please call to reschedule. Francisca Lowe MD [Physician, Orthopedics] - 09/04/24 3:30 pm Discharge Diet: Advance as tolerated and Usual diet Discharge Activity: Increase activity as tolerated, Limit activity as instructed, Use walker/crutches as instructed and As per PT/OT instructions Patient Instructions: Aspirin (By mouth), Oxycodone, Rapid Release (By mouth), Celecoxib (By mouth), Acute Wound Care (DC), Total Hip Replacement (GEN), Post Anesthesia Care Activity Restrictions/Additional Instructions: Weightbearing as tolerated left lower extremity. Posterior hip precautions. You may shower, and get your leg wet, but do not submerge your hip in water. If your outer dressing begins to leak or appear to be lifting up, you may remove it. Otherwise, leave it in place until you are seen in the office. Discharge Attestations Time Spent in Discharge Care*: greater than 30 min Specific Discharge Activities: educating patient, documenting/other paperwork and evaluating patient/reviewing data Quality Metrics Clinical Quality Measures [ No reported AMI, CVA or VTE this stay] Coding Level of Care Code Acute Code for Chg Fwd Diagnoses History of total left hip arthroplasty Z96.642 Primary osteoarthritis of left hip M16.12 Avascular necrosis of bone of left hip M87.052 Obesity, Class II, BMI 35-39.9 E66.812
== END 2024-08-23 15:18 | disposition home or self-care (01) ==
LOC: MEDSURG 13:33
PROVIDERS: Anesthesiology; Admitting Provider Specialist; PCP Family Medicine; Visit Provider Specialist
PROC: (CPT 27130; principal; 2024-08-22 07:50)
DX: M16.12 Unilateral primary osteoarthritis, left hip (principal); M21.852 Other specified acquired deformities of left thigh; M85.88 Other specified disorders of bone density and structure, other site; F17.200 Nicotine dependence, unspecified, uncomplicated
CPT/HCPCS: 27130; 36415; 51702; 72170; 80048; 81025; 85025; 97116; 97161; 97167; 97530; A4216; C1776; G0378; J0131; J0171; J0666; J0690; J1885; J2250; J2405; J2704; J3010; J3370; J3490; J7030; J9999

== ENCOUNTER 2024-08-25 07:58 | Outpatient (RCR) | payer OTHER, MEDICAID, SELFPAY | END 2024-08-28 23:55 | disposition home or self-care (01) | LOC: SPT 07:58 | PROVIDERS: Visit Provider Specialist | DX: Z47.1 Aftercare following joint replacement surgery (principal); Z96.652 Presence of left artificial knee joint | CPT/HCPCS: 97161 ==

== ENCOUNTER 2024-08-29 05:00 | Outpatient (RCR) | payer OTHER, MEDICAID, SELFPAY | END 2024-09-28 23:59 | disposition home or self-care (01) | LOC: SPT 05:00 | PROVIDERS: Visit Provider Specialist | DX: Z47.1 Aftercare following joint replacement surgery (principal); Z96.642 Presence of left artificial hip joint | CPT/HCPCS: 97110; 97112 ==

== ENCOUNTER 2024-09-29 05:00 | Outpatient (RCR) | payer OTHER, MEDICAID, SELFPAY | END 2024-10-29 23:59 | disposition home or self-care (01) | LOC: SPT 05:00 | PROVIDERS: PCP Family Medicine; Visit Provider Specialist | DX: Z47.1 Aftercare following joint replacement surgery (principal); Z96.642 Presence of left artificial hip joint | CPT/HCPCS: 97110 ==

== ENCOUNTER → 2024-10-16 14:26 | Outpatient (BNVA) | payer OTHER, MEDICAID, SELFPAY | PROVIDERS: PCP Family Medicine; Visit Provider Nurse Practitioner | DX: Z98.890 Other specified postprocedural states (principal); Z96.642 Presence of left artificial hip joint | CPT/HCPCS: 73502 ==